=== PATIENT | female | born 1950 | race Caucasian/White ===

== ENCOUNTER 2017-07-19 14:09 | Emergency (ER) | payer MEDICARE ==
[~2017-07-19] VITALS: Ht 162.6 cm; Wt 42.0 kg
[~2017-07-19 14:09] MED LIST: ALPR0.25 PO; GABA600T PO; LISI-363 PO; TRAM100T19 OR; VITA400C28 PO
[2017-07-19 14:17] VITALS: BP 123/87; PULSE 104; RESP 16; TEMP 97.8; O2SAT 96
[2017-07-19] MEDS ORDERED: LISI-515 PO (14:58)
[2017-07-19] MEDS ORDERED: TRAM50TA PO (14:58)
[2017-07-19] MEDS ORDERED: CHOL1TAB41 PO (14:58)
[2017-07-19] MEDS ORDERED: ALPR0.25 PO (14:58)
[2017-07-19] MEDS ORDERED: GABA600T PO (14:58)
[2017-07-19] MEDS ORDERED: PRED-503 PO (15:11)
--- NOTE | 2017-07-19 15:12 | PD ---
HPI Chief Complaint: Medical Clearance Time Seen by Provider: 14:55 Travel History International Travel<30 days: No Contact w/Intl Traveler<30days: No Traveled to known affect area: No History of Present Illness HPI 67-year-old female presents to emergency Department with complaint of continued allergic reaction to fentanyl for greater than 2 months. She has been on a fentanyl patch for approximately 7-8 months with onset of symptoms over 2 months ago. She was weaned off of her fentanyl patch by her pain management doctor secondary to facial swelling and rash. She last had the fentanyl patch on on July 10. Her pain management doctor has continued her on oxycodone and she continues to have the facial rash, but no swelling. She is on pain management for degenerative disc disease in her back and neck. She reports improvement in symptoms since stopping taking fentanyl. She denies airway edema , tongue edema, shortness of breath, difficulty breathing. Rash is itchy. Symptoms are mild in severity. Denies fever, vomiting. Has not tried any other treatments or medications to alleviate her symptoms. Dr. Wilson is her primary care provider. Dr. Agudelo is her pain management doctor. She also has history of anxiety and says that that has been heightened since she stopped the fentanyl patches. She takes Xanax for her anxiety. Has no other medical complaints. No other modifying factors or associated signs and symptoms. PFSH Past Medical History Arthritis: Yes Heart Rhythm Problems: No Cardiac Catheterization: No Cardiovascular Problems: Yes High Cholesterol: No Congestive Heart Failure: No Diabetes: No ?: Not Menopausal: Yes Past Surgical History Appendectomy: Yes Hysterectomy: Yes Social History Alcohol Use: No Tobacco Use: Yes Allergies-Medications (Allergen,Severity, Reaction): Coded Allergies: No Known Allergies (Unverified , 06/27/14) Reported Meds & Prescriptions Reported Meds & Active Scripts Active Deltasone (Prednisone) 20 Mg Tab 40 Mg PO DAILY 5 Days Reported Tramadol (Tramadol HCl) 50 Mg Tab 50 Mg PO TID PRN Lisinopril 20 Mg Tab 20 Mg PO DAILY Gabapentin 600 Mg Tab 600 Mg PO QID Vitamin D3 (Cholecalciferol) 10,000 Unit Tab 50,000 Units PO DAILY Alprazolam 0.25 Mg Tab 0.25 Mg PO BID PRN Review of Systems Except as stated in HPI: all other systems reviewed are Neg Physical Exam Narrative GENERAL: Well-nourished, well-developed thin, female patient, in no acute distress; afebrile, nontoxic-appearing SKIN: Warm and dry. Dry, erythemic rash noted around both eyes, to both cheeks , and around lips of the face. HEAD: Atraumatic. Normocephalic. EYES: Pupils equal and round. No scleral icterus. No injection or drainage. ENT: Mucosa pink and moist. No erythema or exudates. No uvular edema. No uvular , palatal, or tonsillar deviation. Airway patent. EARS: Bilateral pinnae and external canals appear within normal limits. Bilateral tympanic membranes without erythema, dullness or perforation. NECK: Trachea midline. CARDIOVASCULAR: Regular rate and rhythm. No murmur appreciated. RESPIRATORY: No accessory muscle use. Breath sounds clear and equal bilaterally. No retractions or tachypnea. GASTROINTESTINAL: Flat. MUSCULOSKELETAL: No obvious deformities. No clubbing. No cyanosis. No edema. NEUROLOGICAL: Awake and alert. Oriented 3. No obvious cranial nerve deficits. Motor grossly within normal limits. Normal speech. PSYCHIATRIC: Appropriate mood and affect; insight and judgment normal. Data Data Last Documented VS Vital Signs Date Time Temp Pulse Resp B/P (MAP) Pulse Ox O2 Delivery O2 Flow Rate FiO2 07/19/17 14:17 97.8 104 16 123/87 (99) 96 Room Air Orders Orders Ed Discharge Order (07/19/17 15:13) MDM Medical Decision Making Medical Screen Exam Complete: Yes Emergency Medical Condition: Yes Medical Record Reviewed: Yes Differential Diagnosis Allergic reaction, contact dermatitis, nonspecific facial rash Narrative Course 67-year-old female with a facial rash for greater than 2 months that is suspected to be related to fentanyl. She started using fentanyl patches 7-8 months ago. Her pain management doctor is suspected allergic reaction to fentanyl. He weaned her off of fentanyl on July 10. She reports improvement in her facial rash, but it has continued. She is taking oxycodone that he continues to prescribed. It is in no acute distress. She denies airway edema, tongue swelling. No facial swelling noted. Prescribed a 5 day course of oral steroids for home. Instructed patient to follow up with dermatology and/or an scuba diver. Deltasone prescribed for home. Instructed patient to follow up with primary care provider. Patient verbalizes understanding and agreement with treatment plan. Patient is medically cleared and stable for discharge. Discussed reasons to return to the emergency department. Patient agrees with treatment plan. The patients vital signs are stable and the patient is stable for outpatient follow-up and treatment. Patient discharged home, stable and in no acute distress. Diagnosis Primary Impression: Facial rash Referrals: Control Supervisor Primary Care Physician Patient Instructions: Acute Rash (ED), General Allergic Reaction (ED), General Instructions Additional Instructions: Take oral steroids as prescribed [id number] topicals to reduce itch Benadryl as directed and as needed to reduce itch Follow-up with your primary care provider Follow-up with caregiver assisted living and/or scuba diver Return to the emergency department immediately with worsening of symptoms Med/Other Pt SpecificInfo: Prescription(s) given Scripts Prednisone (Deltasone) 20 Mg Tab 40 MG PO DAILY for 5 Days, #10 TAB 0 Refills Prov: Mecca Henderson 07/19/17 Disposition: 01 DISCHARGE HOME Condition: Stable Mecca Henderson Jul 19, 2017 15:12
== END 2017-07-19 16:08 | disposition home or self-care (01) ==
LOC: NEPK 14:09
DX: R21 Rash and other nonspecific skin eruption (principal); Z72.0 Tobacco use
CPT/HCPCS: 99283

== ENCOUNTER 2017-11-11 12:34 | Emergency (ER) | payer MEDICARE ==
[~2017-11-11] VITALS: Ht 162.6 cm; Wt 38.5 kg
[~2017-11-11 12:34] MED LIST changes: +CHOL1TAB41 PO; -LISI-363 PO; +LISI-515 PO; +PRED-503 PO; -TRAM100T19 OR; +TRAM50TA PO; -VITA400C28 PO
[2017-11-11 12:37] VITALS: BP 109/82; PULSE 86; RESP 18; TEMP 97.8; O2SAT 96
[2017-11-11] MEDS ORDERED: SODIUM CHLORIDE 0.9% FLUSH 10 ML FLUSH IVF PRN (13:30)
[2017-11-11] MEDS ORDERED: predniSONE 20 MG TAB PO ONE (13:30)
[2017-11-11] MEDS ORDERED: AMOXICILLIN/CLAVULANATE K 875 MG TAB PO ONE (13:30)
[2017-11-11] MEDS: RESP: ALBUTEROL 2.5 MG/IPRATROPIUM 0.5 MG NEB (SCH) INH ×2 (13:44→13:45)
--- NOTE | 2017-11-11 14:07 | PD ---
HPI Chief Complaint: Cold / Flu Symptoms Time Seen by Provider: 13:06 Travel History International Travel<30 days: No Contact w/Intl Traveler<30days: No Traveled to known affect area: No History of Present Illness HPI 67-year-old woman who presents emerged from clinical cold symptoms ongoing for the past 3 weeks or so. She quit a Z-John about 2 weeks ago which did help. She has had worsening symptoms or past several days, some nausea vomiting, shortness of breath, productive cough. She smokes tobacco. She is a history of COPD but does not take any medications regularly for this. She otherwise has been feeling generally well and healthy before the onset of the symptoms. History Past Medical History Narrative Medical Degenerative disc disease Allergies Tobacco use COPD exacerbation Menopausal: Yes Social History Alcohol Use: No Tobacco Use: Yes Allergies-Medications (Allergen,Severity, Reaction): Coded Allergies: hydrocodone (Verified Allergy, Intermediate, 11/11/17) I get hives and itch Reported Meds & Prescriptions Reported Meds & Active Scripts Active Deltasone (Prednisone) 20 Mg Tab 40 Mg PO DAILY 5 Days Reported Tramadol (Tramadol HCl) 50 Mg Tab 50 Mg PO TID PRN Lisinopril 20 Mg Tab 20 Mg PO DAILY Gabapentin 600 Mg Tab 600 Mg PO QID Vitamin D3 (Cholecalciferol) 10,000 Unit Tab 50,000 Units PO DAILY Alprazolam 0.25 Mg Tab 0.25 Mg PO BID PRN Review of Systems Except as stated in HPI: all other systems reviewed are Neg Physical Exam Narrative GENERAL: Thin 67-year-old woman, no acute distress. SKIN: Focused skin assessment warm/dry. HEAD: Atraumatic. Normocephalic. EYES: Pupils equal and round. No scleral icterus. No injection or drainage. ENT: No nasal bleeding or discharge. Mucous membranes pink and moist. NECK: Trachea midline. No JVD. CARDIOVASCULAR: Regular rate and rhythm. No murmur appreciated. RESPIRATORY: Coarse wheezing throughout the posterior lung pappas. Prolonged expiratory phase. No respiratory distress. GASTROINTESTINAL: Abdomen soft, non-tender, nondistended. Hepatic and splenic margins not palpable. MUSCULOSKELETAL: No obvious deformities. No clubbing. No cyanosis. No edema. NEUROLOGICAL: Awake and alert. No obvious cranial nerve deficits. Motor grossly within normal limits. Normal speech. PSYCHIATRIC: Appropriate mood and affect; insight and judgment normal. Data Data Last Documented VS Vital Signs Date Time Temp Pulse Resp B/P (MAP) Pulse Ox O2 Delivery O2 Flow Rate FiO2 11/11/17 13:00 81 20 97 Room Air 11/11/17 12:37 97.8 109/82 (91) Orders Orders Influenzae A/B Antigen (11/11/17 13:28) Chest, Single Ap (11/11/17 13:28) Sodium Chloride 0.9% Flush (Ns Flush) (11/11/17 13:30) Albuterol-Ipratropium Neb (Duoneb Neb) (11/11/17 13:30) Prednisone (Deltasone) (11/11/17 13:30) Amoxicil-Clavulanate (Augmentin) (11/11/17 13:30) Albuterol Hfa Inh (Proair Hfa Inh) (11/11/17 15:15) Resp Request For Service (11/11/17 ) [facility] Medical Decision Making Medical Screen Exam Complete: Yes Emergency Medical Condition: Yes Interpretation(s) Influenza negative. Chest x-ray: COPD. No pneumonia. Differential Diagnosis COPD exacerbation, pneumonia, influenza, viral syndrome, other Narrative Course Medical decision making INITIAL [id number]-old woman presents to the emergency department what appears to be COPD exacerbation. She looks generally well. She h the antibiotics earlier some improvement. Will check chest x-ray, influenza, reassess. Diagnosis Primary Impression: COPD with exacerbation Additional Instructions: Take Deltasone as prescribed. Use albuterol inhaler every 4-6 hours until symptoms resolve. Take antibiotics as prescribed. Stop smoking. Return to the emergency department for any new or worsening symptoms. Med/Other Pt SpecificInfo: Prescription(s) given Scripts Albuterol 18 GM Inh (Ventolin Hfa 18 GM Inh) 90 Mcg/Act Aer 2 PUFF INH Q4-6H Y for SHORTNESS OF BREATH, #1 INHALER 0 Refills Prov: Vahe Ortega MD 11/11/17 Amoxicillin-Clavulanate (Augmentin) 875-125 Mg Tab 1 TAB PO BID for Infection, #10 TAB 0 Refills Prov: Vahe Ortega MD 11/11/17 Prednisone (Deltasone) 20 Mg Tab 20 MG PO BID for 10 Days, #20 TAB 0 Refills Prov: Vahe Ortega MD 11/11/17 Disposition: 01 DISCHARGE HOME Condition: Stable Vahe Ortega MD Nov 11, 2017 14:06
--- NOTE | 2017-11-11 14:42 | RADRPT ---
EXAM DATE/TIME: 11/11/2017 14:13 [facility] COMPARISON: CHEST SINGLE AP, May 14, 2016, 16:59. INDICATIONS : Shortness of breath. MEDICAL HISTORY : Chronic obstructive pulmonary disease. SURGICAL HISTORY : None. ENCOUNTER: Initial ACUITY: 2 days PAIN SCORE: 110 LOCATION: Bilateral chest FINDINGS: A single view of the chest demonstrates the lungs to be hyperinflated consistent with COPD. without e vidence of mass, infiltrate or effusion. The cardiomediastinal contours are unremarkable. Osseous s tructures are intact. CONCLUSION: Stable chest. Hyperinflation consistent with COPD. No acute cardiopulmonary process or change Matthew Espinal MD on November 11, 2017 at 14:39 Board Certified Radiologist. This report was verified electronically.
[2017-11-11] MEDS ORDERED: VENTAER INH (15:10)
[2017-11-11] MEDS ORDERED: AUGM875T3 PO (15:10)
[2017-11-11] MEDS ORDERED: PRED-503 PO (15:10)
[2017-11-11] MEDS ORDERED: SPACER/DEVICE FOR MDI INH SCH (15:15)
[2017-11-11] MEDS ORDERED: ALBUTEROL SULFATE 90 MCG/ACT HFA 8 GM INHALER INH ONE (15:15)
== END 2017-11-11 15:37 | disposition home or self-care (01) ==
LOC: NEPC 12:34
DX: J44.1 Chronic obstructive pulmonary disease with (acute) exacerbation (principal); R11.2 Nausea with vomiting, unspecified; Z72.0 Tobacco use
CPT/HCPCS: 71045; 87804; 94640; 94664; 99284; J7512

== ENCOUNTER → 2017-12-21 | Outpatient (CLI) | payer MEDICARE ==
[~2017-12-21] MED LIST changes: +AUGM875T3 PO; +VENTAER INH
--- NOTE | 2017-12-21 14:17 | RSPPFT ---
DATE OF PROCEDURE: 12/21/17 COMMENTS: Spirometry shows FVC of 1.8 at 62% of predicted, FEV1 of 0.7 at 33%, FEV1/FVC ratio is decreased. Flow is decreased at FEF 25, FEF 50, FEF 75 and FEF 25-75. There is a good response after bronchodilator treatment. Lung volumes show residual volume is increased. TLC is increased. Diffusion capacity is decreased. Flow volume loop indicates an obstructive pattern. IMPRESSION: 1. Severe obstructive lung disease. 2. Good response after bronchodilator treatment. 3. Lung volumes show hyperinflation and air trapping. 4. Severe loss in diffusion capacity.
== END ==
LOC: PHRSP 08:22
PROVIDERS: ATTEND Specialist
DX: J44.9 Chronic obstructive pulmonary disease, unspecified (principal)
CPT/HCPCS: 94060; 94726; 94729

== ENCOUNTER 2018-08-20 17:00 | Observation (INO) ==
[2018-08-20] MEDS ORDERED: Sod Chloride 0.9% Inj 1,000 ML IV.SIG ONE (17:12)
--- NOTE | 2018-08-20 17:18 | ED ---
HPI General Chief Complaint: Abdominal Pain Stated Complaint: abd pain n/v/d x4 days Time Seen by Provider: 08/20/18 17:17 Source: patient Mode of arrival: ambulatory Limitations: no limitations History of Present Illness HPI narrative: 68-year-old female patient presents to the ER today for 4 days history of abdominal cramping pains, nausea, mom vomiting, diarrhea, chills and diaphoresis according to her . They do not know of any sick contacts, recent travels, or any other. She has been dry heaving today and has not been keeping much down.Pain is currently rated a 6 out of 10. Modifying Factors: None Associated Signs & Symptoms: Nausea, vomiting, diarrhea risk Factors: None Related Data Home Medications Medication Instructions Recorded Confirmed albuterol sulfate [Ventolin HFA] 2 puff INHALATION Q4HR PRN 06/25/18 08/20/18 alprazolam 0.25 mg PO BID PRN 06/25/18 08/20/18 fluticasone-salmeterol 1 puff INHALATION BID 06/25/18 08/20/18 gabapentin 600 mg PO TID 06/25/18 08/20/18 lisinopril 10 mg PO DAILY 06/25/18 08/20/18 prednisone 10 mg PO DAILY 06/25/18 08/20/18 tramadol 50 mg PO Q6H PRN 06/25/18 08/20/18 Allergies Allergy/AdvReac Type Severity Reaction Status Date / Time hydrocodone Allergy Intermediate Hives Verified 08/20/18 17:09 fentanyl Allergy Rash Verified 08/20/18 17:09 oxycodone Allergy Hives Verified 08/20/18 17:09 Review of Systems ROS: all other systems reviewed are negative PMFSH History History Provided By: Patient Medical History Medical History Anxiety (Acute) COPD (chronic obstructive pulmonary disease) (Acute) Degenerative disk disease (Acute) HTN (hypertension) (Acute) History of hysterectomy (Acute) Scoliosis (Acute) Social History Social History Substance History: No History of Abuse Smoking Status: Current some day smoker Tobacco Type: Cigarettes How Often Do You Have a Drink Containing Alcohol: Never Recent Travel in [facility] within the Last 8 Weeks: No Exam Narrative Exam Narrative: GENERAL: Well-developed elderly female patient currently in moderate distress. Awake and oriented x3. SKIN: Focused skin assessment warm/dry. HEAD: Atraumatic. Normocephalic. EYES: Pupils equal and round. No scleral icterus. No injection or drainage. ENT: No nasal bleeding or discharge. Mucous membranes pink and dry. NECK: Trachea midline. No JVD. CARDIOVASCULAR: Regular rate and rhythm. No murmur appreciated. RESPIRATORY: No accessory muscle use. Clear to auscultation. Breath sounds equal bilaterally. GASTROINTESTINAL: Abdomen soft, non-tender, nondistended. Hepatic and splenic margins not palpable. MUSCULOSKELETAL: No obvious deformities. No clubbing. No cyanosis. No edema. NEUROLOGICAL: Awake and alert. No obvious cranial nerve deficits. Motor grossly within normal limits. Normal speech. PSYCHIATRIC: Appropriate mood and affect; insight and judgment normal. Course Initial Documented Vital Signs Temperature 97.6 F 08/20/18 17:05 Pulse Rate 90 08/20/18 17:05 Respiratory Rate 16 08/20/18 17:05 Blood Pressure 87/59 L 08/20/18 17:05 Pulse Oximetry 98 08/20/18 17:05 Last Documented Vital Signs Temperature 97.6 F 08/20/18 17:05 Pulse Rate 71 08/20/18 17:45 Respiratory Rate 16 08/20/18 17:45 Blood Pressure 103/65 08/20/18 17:45 Pulse Oximetry 95 08/20/18 17:45 Medical Decision Making [facility] Narrative Medical decision making narrative: Lab work shows significant worsening in renal function, suspected dehydration and hemoconcentration. Her lab workup shows those significant leukocytosis. CAT scan was ordered to rule out other acute intra-abdominal processes. It was done without contrast due to the renal injury. At this point, my plan would be to admit the patient for IV fluids and nausea medication and further treatment. Patient had gotten a liter of fluids and 2 nausea medications in the ER. Case is discussed with Dr. Kalyan Noble for admission. Medical Screen Exam Complete: Yes Emergency Medical Condition: Yes Differential Diagnosis Differential Diagnosis: Gastroenteritis versus pancreatitis versus dehydration versus electrolyte abnormalities Lab Data Lab results reviewed: Yes I reviewed the patient's lab results. Result diagrams: 08/20/18 17:20 08/20/18 17:20 Lab Results 08/20/18 08/20/18 08/20/18 Range/Units 17:20 17:20 18:18 CBC w Diff Slide review pending WBC 19.6 H (4.0-11.0) th/mm3 RBC 5.79 H (4.00-5.30) mil/mm3 Hgb 15.2 (11.6-15.3) gm/dL Hct 47.6 H (35.0-46.0) % MCV 82.2 (80.0-100.0) fL MCH 26.2 L (27.0-34.0) pg MCHC 31.8 L (32.0-36.0) % RDW 14.8 (11.6-17.2) % Plt Count 313 (150-450) th/mm3 MPV 8.1 (7.0-11.0) fL Neut % (Auto) 74.2 H (16.0-70.0) % Lymph % (Auto) 15.9 (9.0-44.0) % [place] % (Auto) 8.7 H (0.0-8.0) % Eos % (Auto) 0.5 (0.0-4.0) % Baso % (Auto) 0.7 (0.0-2.0) % Neut # (Auto) 14.6 H (1.8-7.7) th/mm3 Lymph # (Auto) 3.1 (1.0-4.8) th/mm3 [place] # (Auto) 1.7 H (0.0-0.9) th/mm3 Eos # (Auto) 0.1 (0.0-0.4) th/mm3 Baso # (Auto) 0.1 (0.0-0.2) th/mm3 WBC Differential . Diff Scan Auto diff confirmed Differential Comment . Platelet Estimate Normal (Normal) Platelet Morphology Normal (Normal) Sodium 134 L (136-145) meq/L Potassium 4.2 (3.5-5.1) meq/L Chloride 101 (98-107) meq/L Carbon Dioxide 22.9 (21.0-32.0) meq/L Anion Gap 10 (5-15) meq/L BUN 45 H (7-18) mg/dL Creatinine 4.70 H (0.50-1.00) mg/dL Estimated GFR 9 L (>89) mL/min Random Glucose 118 H (74-106) mg/dL Calcium 8.6 (8.5-10.1) mg/dL Magnesium 2.3 (1.5-2.5) mg/dL Total Bilirubin 0.5 (0.2-1.0) mg/dL AST 22 (15-37) U/L ALT 27 (10-53) U/L Alkaline Phosphatase 74 (45-117) U/L Total Protein 7.6 (6.4-8.2) g/dL Albumin 4.0 (3.4-5.0) g/dL Lipase 348 (73-393) U/L Urine Color Yellow (Yellw/Straw) Urine Clarity Slightly cloudy (Clear) Urine pH 6.0 (5.0-8.5) Ur Specific [place] 1.010 (1.002-1.035) Urine Protein 100 H (Neg-Trace) mg/dL Urine Glucose (UA) Negative (Negative) mg/dL Urine Ketones Trace H (Negative) mg/dL Urine Occult Blood Trace (Negative) Urine Nitrate Negative (Negative) Urine Bilirubin Negative (Negative) Urine Ictotest Negative (Negative) Urine Urobilinogen 0.2 (Less than 2) mg/dL Ur Leukocyte Esterase Negative (Negative) Urine RBC 0-3 (0-3) /hpf Urine WBC 0-5 (0-5) /hpf Ur Squamous Epith Cells 0-5 (0-5) /hpf Uric Acid Crystals Few H (None) /hpf Amorphous Sediment Few H (None) /hpf Urine Bacteria Few H (None) /hpf Hyaline Casts 4-10 H (0-3) /lpf Urine Mucus Many H (Occasional) /lpf Micro UA Comment Culture not ind Ur Microscopic Review Microscopic reviewed Urine Culture Comments Culture not ind Discharge Plan Discharge Disposition Patient Disposition: 30 Still Patient Discharge Condition Condition: Stable Discharge Details Anticipated Discharge Date: 08/20/18 Diagnosis: VILMA (acute kidney injury), Acute dehydration Physicians Team ED Provider: Rekha Olivas Primary Care Provider: Humberto Wilson Rxs /Orders / Referrals /Forms Prescriptions: No Action gabapentin 600 mg Tablet 600 mg PO TID RF: 0 tramadol 50 mg Tablet 50 mg PO Q6H PRN (Reason: Pain) RF: 0 prednisone 10 mg Tablet 10 mg PO DAILY RF: 0 alprazolam 0.25 mg Tablet 0.25 mg PO BID PRN (Reason: Anxiety) RF: 0 lisinopril 10 mg Tablet 10 mg PO DAILY RF: 0 albuterol sulfate [Ventolin HFA] 90 mcg/actuation Hfa Aerosol Inhaler 2 puff INHALATION Q4HR PRN (Reason: Shortness Of Breath Or Wheezing) RF: 0 fluticasone-salmeterol 113-14 mcg/actuation Aerosol Powdr Breath Activated 1 puff INHALATION BID RF: 0 Discharge Interventions Interventions: Vital Signs Last Done: 08/20/18 17:45 Status ED Status: With Doctor
[2018-08-20 17:34] LABS: Baso # (Auto) 0.1 th/mm3 (0.0-0.2); Baso % (Auto) 0.7 % (0.0-2.0); Eos # (Auto) 0.1 th/mm3 (0.0-0.4); Eos % (Auto) 0.5 % (0.0-4.0); Hematocrit 47.6 % (35.0-46.0); Hemoglobin 15.2 gm/dL (11.6-15.3); Lymph # (Auto) 3.1 th/mm3 (1.0-4.8); Lymph % (Auto) 15.9 % (9.0-44.0); Mean Corpuscular HGB Conc 31.8 % (32.0-36.0); Mean Corpuscular Hemoglobin 26.2 pg (27.0-34.0); Mean Corpuscular Volume 82.2 fL (80.0-100.0); Mean Platelet Volume 8.1 fL (7.0-11.0); Mono # (Auto) 1.7 th/mm3 (0.0-0.9); Mono % (Auto) 8.7 % (0.0-8.0); Neut # (Auto) 14.6 th/mm3 (1.8-7.7); Neut % (Auto) 74.2 % (16.0-70.0); Platelet Count 313 th/mm3 (150-450); Red Blood Count 5.79 mil/mm3 (4.00-5.30); Red Cell Distribution Width 14.8 % (11.6-17.2); White Blood Count 19.6 th/mm3 (4.0-11.0)
[2018-08-20 17:43] LABS: Chloride 101 meq/L (98-107); Potassium 4.2 meq/L (3.5-5.1); Sodium 134 meq/L (136-145)
[2018-08-20 17:46] LABS: Calcium 8.6 mg/dL (8.5-10.1)
[2018-08-20 17:47] LABS: Anion Gap 10 meq/L (5-15); Blood Urea Nitrogen 45 mg/dL (7-18); Carbon Dioxide 22.9 meq/L (21.0-32.0); Glucose,Random 118 mg/dL (74-106); Lipase 348 U/L (73-393); Magnesium 2.3 mg/dL (1.5-2.5)
[2018-08-20 17:50] LABS: Alanine Aminotransferase 27 U/L (10-53); Aspartate Aminotransferase 22 U/L (15-37); Glomerular Filtration Rate 9 mL/min (>89)
[2018-08-20 17:52] LABS: Total Protein 7.6 g/dL (6.4-8.2)
[2018-08-20 17:53] LABS: Alkaline Phosphatase 74 U/L (45-117)
[2018-08-20 17:58] LABS: Platelet Estimate Normal (Normal); Platelet Morphology Normal (Normal)
[2018-08-20 18:33] LABS: Clarity,Urine Slightly Cloudy (Clear); Color,Urine Yellow (Yellw/Straw); Glucose,Urine (UA) Negative (Negative); Leukocyte Esterase,Urine Negative (Negative); Nitrite,Urine Negative (Negative); Urobilinogen,Urine 0.2 mg/dL (Less than 2)
[2018-08-20 18:36] LABS: Bilirubin,Urine Negative (Negative); Ictotest,Urine Negative (Negative)
[2018-08-20 18:42] LABS: RBC,Urine 0-3 /hpf (0-3)
[2018-08-20 18:43] LABS: Squamous Epithelial Cell,Urine 0-5 /hpf (0-5); WBC,Urine 0-5 /hpf (0-5)
[2018-08-20 18:45] LABS: Amorphous Sediment,Urine Few /hpf; Uric Acid Crystals,Urine Few /hpf
[2018-08-20 18:48] LABS: Bacteria,Urine Few /hpf; Mucus,Urine Many /lpf (Occasional)
--- NOTE | 2018-08-20 19:26 | CT ---
EXAM DATE: 08/20/2018 7:01 PM EST AGE/SEX: 68 years / Female INDICATIONS: Diffuse abdominal pain. CLINICAL DATA: This is the patient's initial encounter. Patient reports that signs and symptoms have been present for 4 - 6 days and indicates a pain score of 7/10. MEDICAL/SURGICAL HISTORY: Chronic obstructive pulmonary disease. Hypertension. Hysterectomy. Kyphoplasty. RADIATION DOSE: 4.99 CTDI (mGy) COMPARISON: No prior exams available for comparison. TECHNIQUE: Multiple contiguous axial images were obtained through the abdomen. Images were obtained using multiple row detector helical technique. Using automated exposure control and adjustment of the mA and/or kV according to patient size, radiation dose was kept as low as reasonably achievable to o btain optimal diagnostic quality images. DICOM format image data is available electronically for rev iew and comparison. FINDINGS: Lower Lungs: There is emphysematous change seen at the lung bases. Liver: The liver has a homogeneous density without space-occupying lesion. There is no dilation of th e biliary tree. Spleen: Calcified granulomas are seen throughout the spleen. Pancreas: Unremarkable without mass or calcification. Kidneys: Normal in size and shape. No evidence of mass or hydronephrosis. Adrenal Glands: Unremarkable. Aorta: The aorta and proximal iliac vessels are grossly unremarkable without aneurysmal dilation. V ascular calcifications are seen. Bowel/Mesentery: The bowel loops are grossly unremarkable. The cecum and sigmoid colon have a normal configuration. Abdominal Wall: Intact. Retroperitoneum: No evidence of adenopathy in the retrocrural, para-aortic, or deep pelvic regions. Bladder: Contours are smooth. Reproductive Organs: The patient is status post hysterectomy. Inguinal: The inguinal region is unremarkable without evidence of adenopathy. Bony Structures: The patient is status post vertebroplasty at T12. CONCLUSION: 1. No acute abnormality is seen. 2. Emphysematous change seen at the lung bases. 3. An acute intra-abdominal abnormality is not seen. Electronically signed by: Demetri Garcia MD 08/20/2018 7:25 PM EST
[2018-08-20] MEDS ORDERED: Acetaminophen 325 MG Tablet PO PRN (20:12)
[2018-08-20] MEDS ORDERED: FLUTICASONE SALMETEROL INH SCH (21:00)
[2018-08-20] MEDS ORDERED: MethylPREDNISolone Sod Succinate Inj 125 MG/2 ML Vial IV.PUSH ONE (21:00)
[2018-08-20] MEDS: Pantoprazole Inj 40 MG Vial IV.PUSH SCH (21:06)
[2018-08-20] MEDS: Sod Chloride 0.9% Inj 1,000 ML IV.CONT SCH (21:06)
[2018-08-20] MEDS: ALPRAZolam 0.25 MG Tablet PO PRN (23:37)
[2018-08-21] MEDS: Sod Chloride 0.9% Inj 1,000 ML IV.CONT SCH ×3 (05:00→20:05)
[2018-08-21 06:34] LABS: Baso % (Auto) 0.1 % (0.0-2.0); Eos % (Auto) 0.1 % (0.0-4.0); Hematocrit 38.4 % (35.0-46.0); Hemoglobin 12.3 gm/dL (11.6-15.3); Lymph # (Auto) 0.6 th/mm3 (1.0-4.8); Lymph % (Auto) 5.1 % (9.0-44.0); Mean Corpuscular Volume 81.2 fL (80.0-100.0); Mean Platelet Volume 8.5 fL (7.0-11.0); Mono % (Auto) 0.4 % (0.0-8.0); Neut # (Auto) 11.9 th/mm3 (1.8-7.7); Neut % (Auto) 94.3 % (16.0-70.0); Platelet Count 224 th/mm3 (150-450); Red Blood Count 4.74 mil/mm3 (4.00-5.30); Red Cell Distribution Width 14.5 % (11.6-17.2); White Blood Count 12.5 th/mm3 (4.0-11.0)
[2018-08-21 07:05] LABS: Alanine Aminotransferase 24 U/L (10-53); Albumin 3.3 g/dL (3.4-5.0); Alkaline Phosphatase 61 U/L (45-117); Anion Gap 13 meq/L (5-15); Aspartate Aminotransferase 17 U/L (15-37); Blood Urea Nitrogen 42 mg/dL (7-18); Calcium 7.6 mg/dL (8.5-10.1); Chloride 109 meq/L (98-107); Glomerular Filtration Rate 18 mL/min (>89); Glucose,Random 126 mg/dL (74-106); Potassium 4.6 meq/L (3.5-5.1); Sodium 141 meq/L (136-145); Total Protein 6.3 g/dL (6.4-8.2)
[2018-08-21] MEDS: ALPRAZolam 0.25 MG Tablet PO PRN ×2 (08:55→20:56)
--- NOTE | 2018-08-21 11:37 | P.HP ---
History of Present Illness Service: medicine Primary Care Physician: Humberto Wilson MD Chief Complaint: nausea and vomiting History of Present Illness: 68 y/o female presents to the ER with nausea vomiting and diarrhea for 4 days. Some abdominal pain diffuse with heartburn. She states she has also noted decreased urine output that picked up after IV fluids last pm in ED. She denies fever or chills. No ill contacts. In ER her creatinine was 4.7 her gfr was 9. In jun in ER visit her gfr was 40. She denies use if nsaids though she suffers from chronic back and neck pain. She uses tramadol and gabapentin for her pain. She has also been on a muscle relaxer after recent kyphoplasty for t-12 compression fracture. She is actually trying to get off the pain medications as much as possible. She states her urine has increased since admission and is clearer. She had some nausea this am but no emesis. No further diarrhea either. She has had intermittent episodes of nausea and diarrhea over the last year and once she was recovered from her kyphoplasty the plan was to have her see GI for possible egd/colonoscopy. - Diagnosis (1) VILMA (acute kidney injury) (2) Acute dehydration (3) COPD (chronic obstructive pulmonary disease) (4) Chronic pain (5) Nausea & vomiting (6) Diarrhea Review of Systems Constitutional: Reports weight loss Gastrointestinal: Reports abdominal pain, Reports cramping, Reports heartburn, Reports nausea, Reports vomiting Comments: occasional incomplete bladder emptying Musculoskeletal: Reports back pain, Reports neck pain PMFSH - History History Provided By: Patient, Family Member, Medical Record - Medical History Medical History: Medical History (Last Updated 08/21/18 @ 11:39 by Shani Cornell MD) Compression fracture of body of thoracic vertebra Anxiety COPD (chronic obstructive pulmonary disease) Degenerative disk disease HTN (hypertension) History of hysterectomy Scoliosis - Surgical History Surgical History: Surgical History (Last Reviewed 08/21/18 @ 11:32 by Shani Cornell MD) History of kyphoplasty - Social History I have reviewed the patient's Social History: Yes - Tobacco History Second Hand Smoke Exposure: Yes Tobacco Use In Past 30 Days: No (states she quit 2-3 years ago.) Smoking Status: Former smoker Tobacco Type: Cigarettes - Alcohol History How Often Do You Have a Drink Containing Alcohol: Never - Substance Use History Substance History: No History of Abuse, Past History - Travel History Recent Travel in the [place] Within the Last 8 Weeks: No Recent Travel Out of the Country Within the Last 8 Weeks: No - Immunization History Tetanus Immunization: Unsure Medications and Allergies Active Medications: Active Medications Acetaminophen (Tylenol) 650 mg PO Q4H PRN PRN Reason: Temp > 100.4 Albuterol (Duoneb Neb (Prn)) 1 ampul NEB Q2HR NEB PRN PRN Reason: SHORTNESS OF BREATH/WHEEZING Last Admin: 08/21/18 09:09 Dose: 1 ampul Albuterol (Duoneb Neb (Ambar)) 1 ampul NEB Q6HR WHILE AWAKE NEB AMBAR Alprazolam (Xanax) 0.25 mg PO BID PRN PRN Reason: Anxiety Last Admin: 08/21/18 08:55 Dose: 0.25 mg Sodium Chloride (Ns Inj) 1,000 mls @ 125 mls/hr IV.CONT .Q8H AMBAR Last Admin: 08/21/18 05:00 Dose: 125 mls/hr Ondansetron HCl (Zofran Inj) 4 mg IV.PUSH Q6H PRN PRN Reason: NAUSEA OR VOMITING Last Admin: 08/21/18 05:58 Dose: 4 mg Pantoprazole Sodium (Protonix Inj) 40 mg IV.PUSH Q24H AMBAR Last Admin: 08/20/18 21:06 Dose: 40 mg Pt Own: Fluticasone- Salmeterol 113-14 Inhaler 0 each INH BID AMBAR Sodium Chloride (Ns Flush) 2 ml IV.FLUSH PRN PRN PRN Reason: FLUSH AFTER USING IV ACCESS Last Admin: 08/21/18 05:58 Dose: 2 ml Allergies Allergy/AdvReac Type Severity Reaction Status Date / Time hydrocodone Allergy Intermediate Hives Verified 08/20/18 17:09 fentanyl Allergy Rash Verified 08/20/18 17:09 oxycodone Allergy Hives Verified 08/20/18 17:09 Home Medications Medication Instructions Recorded Confirmed Type albuterol sulfate [Ventolin HFA] 2 puff INHALATION Q4HR PRN 06/25/18 08/20/18 History alprazolam 0.25 mg PO BID PRN 06/25/18 08/20/18 History fluticasone-salmeterol 1 puff INHALATION BID 06/25/18 08/20/18 History gabapentin 600 mg PO TID 06/25/18 08/20/18 History lisinopril 10 mg PO DAILY 06/25/18 08/20/18 History prednisone 10 mg PO DAILY 06/25/18 08/20/18 History tramadol 50 mg PO Q6H PRN 06/25/18 08/20/18 History Exam Vital signs: Vital Signs 08/20/18 17:05 08/20/18 17:45 08/20/18 19:34 Temperature 97.6 F Pulse Rate 90 71 97 H Respiratory Rate 16 16 18 Blood Pressure 87/59 L 103/65 102/74 Pulse Oximetry 98 95 98 08/20/18 21:10 08/20/18 23:30 08/21/18 00:00 Temperature 98.6 F 96.4 F L Pulse Rate 80 85 Respiratory Rate 18 18 Blood Pressure 115/65 135/58 L Pulse Oximetry 100 96 95 08/21/18 04:00 08/21/18 06:05 08/21/18 08:00 Temperature 97.9 F Pulse Rate 60 85 86 Respiratory Rate 18 19 Blood Pressure 110/64 Pulse Oximetry 97 08/21/18 08:09 08/21/18 09:10 08/21/18 09:14 Temperature Pulse Rate 85 Respiratory Rate 20 Blood Pressure Pulse Oximetry 99 98 Intake & Output 08/20/18 08/21/18 08/21/18 18:59 06:59 18:59 Intake Total 1000 / 1000 1000 / 1000 Output Total 375 / 375 Balance 1000 / 1000 625 / 625 Weight 38.9 kg 45.5 kg Intake: IV 1000 / 1000 1000 / 1000 NS Inj 1,000 ML @ 125 mls/hr IV 1000 / 1000 .CONT .Q8H AMBAR Rx#:[id number] NS Inj 1,000 ML @ Wide Open IV. 1000 / 1000 SIG BOLUS ONE Rx#:[id number] Oral 0 / 0 Output: Urine 375 / 375 Other: Weight On Admission 45.6 kg - Constitutional no acute distress, thin - Routine HEENT Exam Head: Present: normocephalic, atraumatic Eye: Present: EOMI ENT: Present: mucous membranes dry Comments: dentures - Routine Neck Exam Present: supple - Routine Respiratory Exam Present: CTA bilaterally - Routine Cardiovascular Exam Present: RRR - Routine Abdominal Exam Present: soft, normoactive bowel sounds, tenderness Comments: some tenderness in midepigastric region and lower abdomen. no rebound or guarding - Routine Extremities Exam Present: full ROM, pulses intact Comments: TEDS in place - Routine Skin Exam Present: intact - Routine Neurological Exam Present: alert, oriented X3 Results - Labs CBC & Chem 7: 08/22/18 04:30 08/22/18 04:30 Labs: Laboratory Results - last 24 hr 08/20/18 08/20/18 08/20/18 17:20 17:20 18:18 CBC w Diff Slide review pending WBC 19.6 H RBC 5.79 H Hgb 15.2 Hct 47.6 H MCV 82.2 MCH 26.2 L MCHC 31.8 L RDW 14.8 Plt Count 313 MPV 8.1 Neut % (Auto) 74.2 H Lymph % (Auto) 15.9 [place] % (Auto) 8.7 H Eos % (Auto) 0.5 Baso % (Auto) 0.7 Neut # (Auto) 14.6 H Lymph # (Auto) 3.1 [place] # (Auto) 1.7 H Eos # (Auto) 0.1 Baso # (Auto) 0.1 WBC Differential . Diff Scan Auto diff confirmed Differential Comment . Platelet Estimate Normal Platelet Morphology Normal Sodium 134 L Potassium 4.2 Chloride 101 Carbon Dioxide 22.9 Anion Gap 10 BUN 45 H Creatinine 4.70 H Estimated GFR 9 L Random Glucose 118 H Calcium 8.6 Magnesium 2.3 Total Bilirubin 0.5 AST 22 ALT 27 Alkaline Phosphatase 74 Total Protein 7.6 Albumin 4.0 Lipase 348 Urine Color Yellow Urine Clarity Slightly cloudy Urine pH 6.0 Ur Specific [place] 1.010 Urine Protein 100 H Urine Glucose (UA) Negative Urine Ketones Trace H Urine Occult Blood Trace Urine Nitrate Negative Urine Bilirubin Negative Urine Ictotest Negative Urine Urobilinogen 0.2 Ur Leukocyte Esterase Negative Urine RBC 0-3 Urine WBC 0-5 Ur Squamous Epith Cells 0-5 Uric Acid Crystals Few H Amorphous Sediment Few H Urine Bacteria Few H Hyaline Casts 4-10 H Urine Mucus Many H Micro UA Comment Culture not ind Ur Microscopic Review Microscopic reviewed Urine Culture Comments Culture not ind 08/21/18 08/21/18 05:40 05:40 CBC w Diff Auto diff final WBC 12.5 H RBC 4.74 Hgb 12.3 D Hct 38.4 MCV 81.2 MCH 26.0 L MCHC 32.0 RDW 14.5 Plt Count 224 MPV 8.5 Neut % (Auto) 94.3 H Lymph % (Auto) 5.1 L [place] % (Auto) 0.4 Eos % (Auto) 0.1 Baso % (Auto) 0.1 Neut # (Auto) 11.9 H Lymph # (Auto) 0.6 L [place] # (Auto) 0.0 Eos # (Auto) 0.0 Baso # (Auto) 0.0 WBC Differential . Diff Scan Differential Comment . Platelet Estimate Platelet Morphology Sodium 141 Potassium 4.6 Chloride 109 H D Carbon Dioxide 19.0 L Anion Gap 13 BUN 42 H Creatinine 2.70 H Estimated GFR 18 L Random Glucose 126 H Calcium 7.6 L D Magnesium Total Bilirubin 0.7 AST 17 ALT 24 Alkaline Phosphatase 61 Total Protein 6.3 L D Albumin 3.3 L D Lipase Urine Color Urine Clarity Urine pH Ur Specific [place] Urine Protein Urine Glucose (UA) Urine Ketones Urine Occult Blood Urine Nitrate Urine Bilirubin Urine Ictotest Urine Urobilinogen Ur Leukocyte Esterase Urine RBC Urine WBC Ur Squamous Epith Cells Uric Acid Crystals Amorphous Sediment Urine Bacteria Hyaline Casts Urine Mucus Micro UA Comment Ur Microscopic Review Urine Culture Comments - Imaging Impressions Abdomen/Pelvis CT 08/20/18 17:48 CONCLUSION: 1. No acute abnormality is seen. 2. Emphysematous change seen at the lung bases. 3. An acute intra-abdominal abnormality is not seen. Caprini VTE Risk Assessment Caprini VTE Risk Assessment: No/Low Risk (score <= 1) Caprini Risk Assessment Model: Point Value = 1 Point Value = 2 Point Value = 3 Point Value = 5 Age 41-60 Minor surgery BMI > 25 kg/m2 Swollen legs Varicose veins or History of unexplained or recurrent spontaneous Oral contraceptives or hormone replacement Sepsis (< 1 month) Serious lung disease, including pneumonia (< 1 month) Abnormal pulmonary function Acute myocardial infarction Congestive heart failure (< 1 month) History of inflammatory bowel disease Medical patient at bed rest Age 61-74 Arthroscopic surgery Major open surgery (> 45 min) Laparoscopic surgery (> 45 min) Malignancy Confined to bed (> 72 hours) Immobilizing plaster cast Central venous access Age >= 75 History of VTE Family history of VTE Factor V Leiden Prothrombin [id number] Lupus anticoagulant Anticardiolipin antibodies Elevated serum homocysteine Heparin-induced thrombocytopenia Other congenital or acquired thrombophilia Stroke (< 1 month) Elective arthroplasty Hip, pelvis, or leg fracture Acute spinal cord injury (< 1 month) Prophylaxis Regimen: Total Risk Factor Score Risk Level Prophylaxis Regimen 0-1 Low Early ambulation 2 Moderate Order ONE of the following: *Sequential Compression Device (SCD) *Heparin 5000 units SQ BID 3-4 Higher Order ONE of the following medications: *Heparin 5000 units SQ TID *Enoxaparin/Lovenox 40 mg SQ daily (WT < 150 kg, CrCl > 30 mL/min) *Enoxaparin/Lovenox 30 mg SQ daily (WT < 150 kg, CrCl > 10-29 mL/min) *Enoxaparin/Lovenox 30 mg SQ BID (WT < 150 kg, CrCl > 30 mL/min) AND/OR *Sequential Compression Device (SCD) 5 or more Highest Order ONE of the following medications: *Heparin 5000 units SQ TID (Preferred with Epidurals) *Enoxaparin/Lovenox 40 mg SQ daily (WT < 150 kg, CrCl > 30 mL/min) *Enoxaparin/Lovenox 30 mg SQ daily (WT < 150 kg, CrCl > 10-29 mL/min) *Enoxaparin/Lovenox 30 mg SQ BID (WT < 150 kg, CrCl > 30 mL/min) AND *Sequential Compression Device (SCD) Assessment and Plan - Assessment (1) VILMA (acute kidney injury) Code(s): N17.9 - Acute kidney failure, unspecified Status: Resolved Plan: Her creatinine has dropped over night with improvement in renal function with simple hydration. medications that are metabolized by the kidney or nephrotoxic have been held, cont gentle hydration (2) Acute dehydration Code(s): E86.0 - Dehydration Status: Resolved Plan: she received bolus of iv fluids in er and has continued with Iv fluids with improvement in overall well being, will increase oral intake and see how she tolerates (3) COPD (chronic obstructive pulmonary disease) Code(s): J44.9 - Chronic obstructive pulmonary disease, unspecified Status: Chronic Plan: She has had no pulmonary complaints, normally is on home inhalers and prednisone 10 mg daily, dose of solumedrol given last pm, will cont with scheduled and prn nebulizers (4) Chronic pain Code(s): G89.29 - Other chronic pain Status: Chronic Plan: she has chronic pain from her neck and back as well as now from recent compression fracture and kyphoplasty, she has been trying to wean herself off pain medications, will have her move with PT and see how she does (5) Nausea & vomiting Code(s): R11.2 - Nausea with vomiting, unspecified Status: Acute Plan: 4 days if nausea and vomiting accompanied by diarrhea, improved with bowel rest ppi and antiemetics, possibly a gastroenteritis, will progress diet today and see how she does, she was suppose to get gi evaluation as outpatient for episodes of decreased appetite and nausea as well as weight loss. Depending on how she does we may have them see her here (6) Diarrhea Code(s): R19.7 - Diarrhea, unspecified Status: Acute Plan: Diarrhea resumed this afternoon no change regarding abdominal pain , will order stool studies. - (3) COPD (chronic obstructive pulmonary disease) Qualifiers: COPD type: unspecified COPD Qualified Code(s): J44.9 - Chronic obstructive pulmonary disease, unspecified (4) Chronic pain Qualifiers: Chronic pain type: other chronic pain Qualified Code(s): G89.29 - Other chronic pain (5) Nausea & vomiting Qualifiers: Vomiting Intractability: unspecified
[2018-08-21 15:49] LABS: Baso % (Auto) 0.1 % (0.0-2.0); Eos % (Auto) 0.1 % (0.0-4.0); Hemoglobin 11.5 gm/dL (11.6-15.3); Lymph # (Auto) 1.2 th/mm3 (1.0-4.8); Lymph % (Auto) 9.5 % (9.0-44.0); Mean Corpuscular Hemoglobin 25.9 pg (27.0-34.0); Mean Platelet Volume 8.1 fL (7.0-11.0); Mono # (Auto) 1.3 th/mm3 (0.0-0.9); Mono % (Auto) 10.5 % (0.0-8.0); Neut # (Auto) 9.8 th/mm3 (1.8-7.7); Neut % (Auto) 79.8 % (16.0-70.0); Platelet Count 208 th/mm3 (150-450); Red Blood Count 4.45 mil/mm3 (4.00-5.30); Red Cell Distribution Width 14.6 % (11.6-17.2); White Blood Count 12.3 th/mm3 (4.0-11.0)
[2018-08-21 16:19] LABS: Potassium 4.3 meq/L (3.5-5.1)
[2018-08-21 16:22] LABS: Calcium 7.6 mg/dL (8.5-10.1)
[2018-08-21 16:23] LABS: Carbon Dioxide 18.5 meq/L (21.0-32.0)
--- NOTE | 2018-08-21 18:08 | P.HPUP ---
The Pre-Admit History and Physical Examination regarding the above named patient was reviewed (including, but not limited to, vital signs, heart, lungs, co-morbid conditions), and upon re-examination it is noted that: the patient's condition has changed since the last examination. Changes: Came by to recheck patient and she states she has had some nausea with the full liquids, diarrhea has resumed as well.
[2018-08-21] MEDS: Pantoprazole Inj 40 MG Vial IV.PUSH SCH (20:51)
[2018-08-21] MEDS ORDERED: Temazepam 15 MG Capsule PO ONE (23:45)
[2018-08-21] MEDS ORDERED: Temazepam 15 MG Capsule PO PRN (23:49)
[2018-08-22] MEDS: Sod Chloride 0.9% Inj 1,000 ML IV.CONT SCH (03:49)
[2018-08-22 05:30] LABS: Baso # (Auto) 0.1 th/mm3 (0.0-0.2); Baso % (Auto) 0.5 % (0.0-2.0); Eos % (Auto) 0.4 % (0.0-4.0); Hematocrit 30.8 % (35.0-46.0); Hemoglobin 9.9 gm/dL (11.6-15.3); Lymph # (Auto) 1.8 th/mm3 (1.0-4.8); Mean Corpuscular HGB Conc 32.2 % (32.0-36.0); Mean Corpuscular Hemoglobin 26.2 pg (27.0-34.0); Mean Corpuscular Volume 81.4 fL (80.0-100.0); Mean Platelet Volume 8.3 fL (7.0-11.0); Neut # (Auto) 9.1 th/mm3 (1.8-7.7); Neut % (Auto) 76.1 % (16.0-70.0); Platelet Count 166 th/mm3 (150-450); Red Blood Count 3.78 mil/mm3 (4.00-5.30); Red Cell Distribution Width 14.5 % (11.6-17.2)
[2018-08-22 05:43] LABS: Potassium 3.9 meq/L (3.5-5.1)
[2018-08-22 05:52] LABS: Calcium 7.4 mg/dL (8.5-10.1); Carbon Dioxide 16.7 meq/L (21.0-32.0)
[2018-08-22 05:57] LABS: Total Protein 5.3 g/dL (6.4-8.2)
[2018-08-22] MEDS ORDERED: Sodium Chloride 0.45 % Inj 1,000 ML IV.CONT SCH (12:00)
--- NOTE | 2018-08-22 12:09 | P.PN ---
Subjective Interval history: states after I saw her her diarrhea slowed down significantly, no nausea, hungry , no bms until this am, small and soft. breathing ok. Physical Exam Vital signs: Vital Signs 08/21/18 12:00 08/21/18 14:56 08/21/18 15:44 Temperature 97.0 F L 98.7 F Pulse Rate 100 H 87 90 Respiratory Rate 17 19 17 Blood Pressure 113/65 120/78 Pulse Oximetry 97 97 08/21/18 20:00 08/21/18 20:09 08/22/18 00:00 Temperature 97.2 F L 97.2 F L Pulse Rate 84 84 80 Respiratory Rate 18 18 18 Blood Pressure 110/58 L 105/58 L Pulse Oximetry 95 98 94 L 08/22/18 03:05 08/22/18 08:00 08/22/18 10:10 Temperature 96.8 F L Pulse Rate 90 74 79 Respiratory Rate 18 16 18 Blood Pressure 109/70 Pulse Oximetry 97 Intake & Output 08/21/18 08/22/18 08/22/18 18:59 06:59 18:59 Intake Total 1000 / 1000 2440 / 2440 Balance 1000 / 1000 2440 / 2440 Weight 48.1 kg Intake: IV 1000 / 1000 1959 NS Inj 1,000 ML @ 125 mls/hr IV 1000 / 1000 1959 / 1959 .CONT .Q8H COUNT INCLUDES THE [facility] Rx#:[id number] Oral 480 / 480 Other: # Voids 2 Date of Last Bowel Movement 08/22/18 # Bowel Movements 4 - Constitutional no acute distress - Routine HEENT Exam Head: Present: normocephalic ENT: Present: mucous membranes moist - Routine Respiratory Exam Present: CTA bilaterally - Routine Abdominal Exam Present: soft, normoactive bowel sounds - Routine Neurological Exam Present: alert, oriented X3 - Routine Psychiatric Exam Present: normal affect Results - Labs CBC & Chem 7: 08/22/18 04:30 08/22/18 04:30 Laboratory Results - last 24 hr 08/21/18 08/21/18 08/22/18 15:30 15:30 04:30 CBC w Diff Auto diff final Auto diff final WBC 12.3 H 12.0 H RBC 4.45 3.78 L Hgb 11.5 L 9.9 L Hct 36.0 30.8 L MCV 81.0 81.4 MCH 25.9 L 26.2 L MCHC 32.0 32.2 RDW 14.6 14.5 Plt Count 208 166 MPV 8.1 8.3 Neut % (Auto) 79.8 H 76.1 H Lymph % (Auto) 9.5 15.0 [place] % (Auto) 10.5 H 8.0 Eos % (Auto) 0.1 0.4 Baso % (Auto) 0.1 0.5 Neut # (Auto) 9.8 H 9.1 H Lymph # (Auto) 1.2 1.8 [place] # (Auto) 1.3 H 1.0 H Eos # (Auto) 0.0 0.0 Baso # (Auto) 0.0 0.1 WBC Differential . . Differential Comment . . Sodium 142 Potassium 4.3 Chloride 113 H Carbon Dioxide 18.5 L Anion Gap 11 BUN 36 H Creatinine 2.00 H Estimated GFR 25 L Random Glucose 99 Calcium 7.6 L Prot Corrected Calcium Total Bilirubin AST ALT Alkaline Phosphatase Total Protein Albumin Stl C.difficile DNA Amp St C. diff Tox Epid 027 08/22/18 08/22/18 04:30 07:45 CBC w Diff WBC RBC Hgb Hct MCV MCH MCHC RDW Plt Count MPV Neut % (Auto) Lymph % (Auto) [place] % (Auto) Eos % (Auto) Baso % (Auto) Neut # (Auto) Lymph # (Auto) [place] # (Auto) Eos # (Auto) Baso # (Auto) WBC Differential Differential Comment Sodium 146 H Potassium 3.9 Chloride 117 H Carbon Dioxide 16.7 L Anion Gap 12 BUN 26 H Creatinine 1.40 H Estimated GFR 37 L Random Glucose 91 Calcium 7.4 L* Prot Corrected Calcium 8.4 L Total Bilirubin 0.5 AST 22 ALT 22 Alkaline Phosphatase 44 L Total Protein 5.3 L D Albumin 3.0 L Stl C.difficile DNA Amp Negative St C. diff Tox Epid 027 Negative Assessment and Plan - Assessment (1) VILMA (acute kidney injury) Code(s): N17.9 - Acute kidney failure, unspecified Status: Resolved Plan: her renal function is close to baseline at this point, will back off on fluids (2) Acute dehydration Code(s): E86.0 - Dehydration Status: Resolved Plan: resolved, will see how she tolerates diet, no further emesis, diarrhea off and on but per report from patient has slowed down this am (3) COPD (chronic obstructive pulmonary disease) Code(s): J44.9 - Chronic obstructive pulmonary disease, unspecified Status: Chronic Plan: She has had no pulmonary complaints, normally is on home inhalers and prednisone 10 mg daily, states breathing is doing well , advised she can bring her inhaler from home (4) Chronic pain Code(s): G89.29 - Other chronic pain Status: Chronic Plan: she has chronic pain from her neck and back as well as now from recent compression fracture and kyphoplasty, she has been trying to wean herself off pain medications, she was seen by PT and they recommend continues PT as outpatient with osteroporosis precautions, so far has not used pain medications here (5) Nausea & vomiting Code(s): R11.2 - Nausea with vomiting, unspecified Status: Acute Plan: No further nausea, is on ppi, will try to progress diet, her PCP was kenny to have her see GI as outpatient for her bouts of nausea as well as weight loss, apparently has never had colonoscopy (6) Diarrhea Code(s): R19.7 - Diarrhea, unspecified Status: Acute Plan: Per report had diarrhea yesterday afternoon that again slowed down, c dif negative, enteric pathogens pending- - Plan if she tolerates food without nausea or diarrhea will discharge her home and arrange for outpatient follow up with GI (3) COPD (chronic obstructive pulmonary disease) Qualifiers: COPD type: unspecified COPD Qualified Code(s): J44.9 - Chronic obstructive pulmonary disease, unspecified (4) Chronic pain Qualifiers: Chronic pain type: other chronic pain Qualified Code(s): G89.29 - Other chronic pain (5) Nausea & vomiting Qualifiers: Vomiting Intractability: unspecified
[2018-08-22 16:46] VITALS: BP 131/66; PULSE 83; RESP 17; TEMP 97.8; O2SAT 98
== END 2018-08-22 18:20 | disposition home or self-care (01) ==
LOC: PHED 17:00 → INTOOBSV 19:18 → PHEDA 19:18 → PH3 20:15
PROVIDERS: ADMIT Legal Medicine; ATTEND Legal Medicine
DX: E86.0 Dehydration; Z87.891 Personal history of nicotine dependence; J44.9 Chronic obstructive pulmonary disease, unspecified; Z88.5 Allergy status to narcotic agent; Z90.710 Acquired absence of both cervix and uterus; M41.9 Scoliosis, unspecified; I10 Essential (primary) hypertension; G89.29 Other chronic pain; F41.9 Anxiety disorder, unspecified; N17.9 Acute kidney failure, unspecified